=== PATIENT | male | born 1975 | race Caucasian/White ===

== ENCOUNTER → 2022-09-15 14:09 | Outpatient (CLI) | payer OTHER, SELFPAY ==
--- NOTE | 2022-09-15 14:10 | DI.RAD.S_ITS ---
PROCEDURE: XR RIBS LT MIN 3V W CXR1V INDICATIONS: Rib pain TECHNIQUE: 2 views of the left ribs were acquired, along with a single view chest. COMPARISON: None. FINDINGS: Surgical changes and devices: None. Bones and chest wall: No fractures or dislocations. No suspicious bony lesions. Overlying soft tissues appear unremarkable. Lungs and pleura: No pleural effusions or pneumothorax. Lungs appear clear. Mediastinum: Mediastinal contours appear normal. Heart size is normal. IMPRESSION: No displaced left rib fracture. No acute cardiopulmonary pathology. Dictated by: Hill Lowe M.D. on 09/15/2022 at 18:10 Approved by: Hill Lowe M.D. on 09/15/2022 at 18:12
== END ==
PROVIDERS: Referring Provider Nurse Practitioner Family; Visit Provider Nurse Practitioner Family
DX: R07.81 Pleurodynia (principal)
CPT/HCPCS: 71101